=== PATIENT | female | born 1965 | race Caucasian/White ===

== ENCOUNTER 2019-06-29 13:19 | Emergency (ER) | payer OTHER, SELFPAY ==
[2019-06-29 13:20] VITALS: BP 155/70; PULSE 76; RESP 14; TEMP 36.5; O2SAT 100; BMI 28.4
--- NOTE | 2019-06-29 13:49 | DI.RAD.S_ITS ---
PROCEDURE: XR ACUTE ABDOMEN SERIES INDICATIONS: abd pain TECHNIQUE: One view chest and two views of the abdomen were acquired. COMPARISON: [facility], CR, XR SACRUM COCCYX MIN 2V, 06/29/2019, 14:14. FINDINGS: Surgical changes and devices: None. Chest: Lungs are clear. Heart size is normal. No pleural effusions. No pneumoperitoneum. Abdomen: Scattered small bowel and colonic gas. No dilated loops of bowel seen. No air-fluid levels. No suspicious calcifications. Visualized solid organ contours appear normal. Bones: No suspicious bony lesions. IMPRESSION: No acute cardiopulmonary abnormality. Nonobstructive bowel gas pattern. If clinically indicated consider CT abdomen and pelvis for further evaluation. Dictated by: Ras Dobson M.D. on 06/29/2019 at 14:56 Approved by: Ras Dobson M.D. on 06/29/2019 at 14:58
--- NOTE | 2019-06-29 13:50 | DI.RAD.S_ITS ---
PROCEDURE: XR SACRUM COCCYX MIN 2V INDICATIONS: pain TECHNIQUE: 3 views of the sacrum and coccyx acquired. COMPARISON: [facility], CR, XR ACUTE ABDOMEN SERIES, 06/29/2019, 14:14. FINDINGS: Bones: No fractures or dislocations. No suspicious bony lesions. Soft tissues: Visualized bowel gas pattern is normal. No suspicious soft tissue densities. IMPRESSION: No acute osseous abnormality. Dictated by: Ras Dobson M.D. on 06/29/2019 at 14:58 Approved by: Ras Dobson M.D. on 06/29/2019 at 14:58
--- NOTE | 2019-06-29 13:53 | ED_ITS ---
HPI - GI Bleed <NICKOLAS Bell - Last Filed: 06/29/19 19:52> General Chief complaint: GI Bleed Stated complaint: Bleeding From Rectum, Sharp Pain in Abd Time Seen by Provider: 06/29/19 13:26 Source: patient Mode of arrival: Ambulatory Limitations: no limitations History of Present Illness HPI Narrative: The patient is a 53-year-old female nonsmoker who presents with a chief complaint of bright red blood per rectum with abdominal pain. This has been ongoing for the past several days. She states that she feels dizzy at times now. She states that she passes blood clots. She states that the pain comes in cramping waves. She compares at to labor. She denies any fevers nausea vomiting. She states that she ?felt warm yesterday but now no longer does. She then states that her primary care provider, has ordered a ?stat colonoscopy but she has not heard anything about getting this scheduled yet. She states she has never had a colonoscopy before, even though she had an e pisode of bright red blood per rectum several years ago but did not have insurance at that time. 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 She she describes urinary urgency, states that she has had episodes of urinary incontinence. However she states that they happen while trying to get to the bathroom. She denies any current numbness or tingling, but states that she had slight numbness in one of her legs yesterday. She denies any fecal incontinence. She ambulated into the emergency department unassisted. Related Data Allergies Allergy/AdvReac Type Severity Reaction Status Date / Time erythromycin base Allergy Verified 06/29/19 13:50 Review of Systems <NICKOLAS Bell - Last Filed: 06/29/19 19:52> Review of Systems Narrative: GENERAL: Denies chills, fatigue, malaise, fever, sweats. HEENT: Denies sinus pain, ear pain, sore throat, difficulty swallowing, dizziness. RESPIRATORY: Denies dyspnea, cough, wheezing, hemoptysis, sputum. CARDIOVASCULAR: Denies chest pain, palpitations, orthopnea, edema, GASTROINTESTINAL: See HPI : Denies dysuria, frequency, incontinence, hematuria, urinary retention. MUSCULOSKELETAL: denies weakness, joint pain, or bony pain SKIN: Denies rash, skin lesions, or other NEUROLOGIC: See HPI PSYCHIATRIC: No concerning psychosocial issues. 12 point review of systems is negative except for those stated above Patient History <Trinity BarreraNICKOLAS - Last Filed: 06/29/19 19:52> Social History Smoking Status: Unknown if ever smoked Exam <Trinity BarreraNICKOLAS - Last Filed: 06/29/19 19:52> Narrative Exam Narrative: GENERAL: This is a well-nourished, well-developed patient, in no acute distress HEAD: Atraumatic. Normocephalic. No temporal or scalp tenderness. EYES: Pupils equal round and reactive. Extraocular motions intact. No scleral icterus. No injection or drainage. ENT: Nose without bleeding, purulent drainage or septal hematoma. Throat without erythema, tonsillar hypertrophy or exudate. Uvula midline. Airway patent. NECK: Trachea midline. No JVD or lymphadenopathy. Supple, nontender, no mening eal signs. CARDIOVASCULAR: Regular rate and rhythm RESPIRATORY: Clear to auscultation. Breath sounds equal bilaterally. No wheezes, rales, or rhonchi. No cough. No increased respiratory effort. No accessory muscle use. GASTROINTESTINAL: Abdomen soft, diffusely tender, nondistended. No hepato-spl enomegaly, or palpable masses. No guarding. Active bowel sounds rectal: Rama RN at bedside. No gross blood. Tone intact. No visible hemorrhoids. EXTREMITIES: No clubbing, cyanosis, or edema. No joint tenderness, effusion, or edema noted. Strength is equal upper and lower extremities bilaterally. BACK: Nontender without deformity or crepitance. No flank tenderness. No gross pain to palpation of CT or L-spine. General pain to palpation sacral area. NEURO: AOx3. SKIN: No rash or erythema on visible skin Initial Vital Signs Initial Vital Signs: Vital Signs Temperature 97.7 F 06/29/19 13:20 Pulse Rate 76 06/29/19 13:20 Respiratory Rate 14 06/29/19 13:20 Blood Pressure 155/70 H 06/29/19 13:20 Pulse Oximetry 100 06/29/19 13:20 <Isaac Reilly DO - Last Filed: 07/04/19 18:02> Initial Vital Signs Initial Vital Signs: Vital Signs Temperature 97.7 F 06/29/19 13:20 Pulse Rate 76 06/29/19 13:20 Respiratory Rate 14 06/29/19 13:20 Blood Pressure 155/70 H 06/29/19 13:20 Pulse Oximetry 100 06/29/19 13:20 Procedures <Trinity NICKOLAS Barrera - Last Filed: 06/29/19 19:52> Stool Hemoccult Procedural Steps Taken: stool placed in appropriate test area, developer placed on stool and control areas and controls appropriately positive and negative Hemoccult result: positive Scores <NICKOLAS Bell - Last Filed: 06/29/19 19:52> GCS [place] coma scale eye opening: Spontaneous [place] coma scale verbal response: Orientated [place] coma scale motor response: Obey commands [place] coma scale total score: 15 Course <NICKOLAS Bell - Last Filed: 06/29/19 19:52> Orders Ordered: Discontinued Medications Sodium Chloride (Normal Saline 0.9%) 1,000 mls @ 1,000 mls/hr IV BOLUS PRN PRN Reason: Fluid replacement Last Infusion: 06/29/19 18:29 Dose: 0 mls/hr Documented by: Admin: 06/29/19 15:49 Dose: 1,000 mls/hr Documented by: KYLE Vital Signs Vital signs: Vital Signs - 8 hr 06/29/19 13:20 06/29/19 15:00 06/29/19 18:30 Temperature 97.7 F Pulse Rate 76 76 83 Respiratory Rate 14 16 Blood Pressure 155/70 H 144/70 H Blood Pressure [Left Arm] 128/62 Pulse Oximetry 100 100 100 <Isaac Reilly DO - Last Filed: 07/04/19 18:02> Orders Ordered: Discontinued Medications Sodium Chloride (Normal Saline 0.9%) 1,000 mls @ 1,000 mls/hr IV BOLUS PRN PRN Reason: Fluid replacement Last Infusion: 06/29/19 18:29 Dose: 0 mls/hr Documented by: Admin: 06/29/19 15:49 Dose: 1,000 mls/hr Documented by: KYLE Vital Signs Vital signs: Vital Signs - 8 hr 06/29/19 13:20 06/29/19 15:00 06/29/19 18:30 Temperature 97.7 F Pulse Rate 76 76 83 Respiratory Rate 14 16 Blood Pressure 155/70 H 144/70 H Blood Pressure [Left Arm] 128/62 Pulse Oximetry 100 100 100 MDM - GI Bleed <Trinity Barrera, TRAFFIC CONTROL SUPERVISOR- - Last Filed: 06/29/19 19:52> Lab Data Result diagrams: 06/29/19 14:00 06/29/19 14:00 Labs: Lab Results 06/29/19 06/29/19 06/29/19 Range/Units 14:00 14:00 14:00 WBC 10.1 (4.5-11.0) X10^3/uL RBC 4.57 (4.0-5.2) X10^6/uL Hgb 13.3 (12.0-16.0) g/dL Hct 38.9 (36-46) % MCV 85.0 (80-100) fL MCH 29.0 (26-34) PG MCHC 34.1 (30-36) % RDW 12.9 (11.6-14.8) % Plt Count 292 (150-400) X10^3/uL Neut % (Auto) 68.3 (50-75) % Lymph % (Auto) 20.1 L (25-40) % [place] % (Auto) 9.0 (3-14) % Eos % (Auto) 1.7 L (2-4) % Baso % (Auto) 0.9 (0-2) % Neut # (Auto) 6900 (8384-3083) /uL Lymph # (Auto) 2000 (2695-7420) /uL [place] # (Auto) 900 (0-900) /uL Eos # (Auto) 200 (0-450) /uL Baso # (Auto) 100 (0-100) /uL PT 12.8 H (10.1-12.7) SECONDS INR 1.1 (0.9-1.3) APTT 36 (26.4-36.2) SECONDS Sodium 138 (137-145) mmol/L Potassium 4.0 (3.4-5.1) mmol/L Chloride 100 (98-107) mmol/L Carbon Dioxide 30 (22-32) mmol/L BUN 13 (7-17) mg/dL Creatinine 0.75 (0.52-1.04) mg/dL Estimated GFR > 60.0 (>60) mL/min BUN/Creatinine Ratio 17.3 (6-22) Glucose 98 (70-100) mg/dL Calcium 9.7 (8.4-10.2) mg/dL Total Bilirubin 0.6 (0.2-1.3) mg/dL AST 24 (14-36) IU/L ALT 18 (<35) IU/L Alkaline Phosphatase 66 (38-126) U/L Total Protein 8.4 H (6.3-8.2) g/dL Albumin 4.6 (3.5-5.0) g/dL Globulin 3.8 (1.7-4.1) g/dL Albumin/Globulin Ratio 1.2 (1.0-2.8) Amylase (30-110) U/L Lipase (23-300) U/L Blood Type Antibody Screen 06/29/19 06/29/19 Range/Units 14:00 14:00 WBC (4.5-11.0) X10^3/uL RBC (4.0-5.2) X10^6/uL Hgb (12.0-16.0) g/dL Hct (36-46) % MCV (80-100) fL MCH (26-34) PG MCHC (30-36) % RDW (11.6-14.8) % Plt Count (150-400) X10^3/uL Neut % (Auto) (50-75) % Lymph % (Auto) (25-40) % [place] % (Auto) (3-14) % Eos % (Auto) (2-4) % Baso % (Auto) (0-2) % Neut # (Auto) (5858-7733) /uL Lymph # (Auto) (9109-9275) /uL [place] # (Auto) (0-900) /uL Eos # (Auto) (0-450) /uL Baso # (Auto) (0-100) /uL PT (10.1-12.7) SECONDS INR (0.9-1.3) APTT (26.4-36.2) SECONDS Sodium (137-145) mmol/L Potassium (3.4-5.1) mmol/L Chloride (98-107) mmol/L Carbon Dioxide (22-32) mmol/L BUN (7-17) mg/dL Creatinine (0.52-1.04) mg/dL Estimated GFR (>60) mL/min BUN/Creatinine Ratio (6-22) Glucose (70-100) mg/dL Calcium (8.4-10.2) mg/dL Total Bilirubin (0.2-1.3) mg/dL AST (14-36) IU/L ALT (<35) IU/L Alkaline Phosphatase (38-126) U/L Total Protein (6.3-8.2) g/dL Albumin (3.5-5.0) g/dL Globulin (1.7-4.1) g/dL Albumin/Globulin Ratio (1.0-2.8) Amylase 61 (30-110) U/L Lipase 37 (23-300) U/L Blood Type O Negative Antibody Screen Negative Urine Dip Bedside Urine Glucose Negative Bedside Urine Bilirubin - Negative Bedside Urine Ketone - Negative Urine Specific [place] 1.015 Bedside Urine Occult Blood - Negative Bedside Urine pH 6.0 Bedside Urine Protein - Negative Bedside Urine Urobilinogen - Negative Bedside Urine Nitrite - Negative Bedside Urine Leukocytes - Negative Esterase Imaging Data CT scan - abdomen/pelvis: Radiologist's Impression: [address] [place] [address] CT Scan Report Signed Patient: Annabelle Bryant EMR#: [id number] : 1965Acct:[id number] Age/Sex: 53 / FDate of Service: 06/29/19 Loc: ED Accession Number: [id number] Procedure: CT abdomen pelvis w con Ordering Provider: Trinity Barrera [facility]- PROCEDURE: CT ABDOMEN PELVIS W CON INDICATIONS: abd pain, bleeding TECHNIQUE: After the administration of intravenous contrast, 5 mm thick sections acquired from the diaphragm to the symphysis. 5 mm coronal and sagittal reformats were acquired. For radiation dose reduction, the following was used: automated exposure control, adjustment of mA and/or kV according to patient size. COMPARISON: None. FINDINGS: Image quality: Excellent. ABDOMEN: Lung bases: Lung bases are clear. Heart size is normal. Solid organs: Liver is normal in size and enhancement. Gallbladder appears normal. Biliary system is non dilated. Pancreas enhances normally. Spleen is normal in size and enhancement. No adrenal nodules. Kidneys demonstrate normal size and enhancement, without hydronephrosis. Peritoneum and bowel: Bowel loops demonstrate normal wall thickness and caliber. No free fluid or air. Mild colonic obstipation. Nodes and vessels: No retroperitoneal or mesenteric adenopathy by size criteria. Aorta and inferior vena cava are normal in size. Miscellaneous: No ventral hernias. PELVIS: Genitourinary: Bladder wall thickness is normal. Note is made of a 3.8 cm diameter uterine fibroid. Miscellaneous: No inguinal hernias or adenopathy. Bones: No suspicious bony lesions. No vertebral body compression fractures. IMPRESSION: Source of reported abdominal pain and bleeding is not seen. 3.8 cm uterine fibroid noted near the fundus. No intestinal obstruction or perforation is found. Mild colonic obstipation. Dictated by: Flaco Liu M.D. on 06/29/2019 at 15:52 Approved by: Flaco Liu M.D. on 06/29/2019 at 15:54 Sacrum and coccyx x-ray: Radiologist's Impression: [address] [place] [id number] XRay Report Signed Patient: Annabelle Bryant EMR#: [id number] : 1965Acct:[id number] Age/Sex: 53 / FDate of Service: 06/29/19 Loc: ED Accession Number: [id number] Procedure: XR sacrum coccyx min 2V Ordering Provider: Trinity Barrera PROCEDURE: XR SACRUM COCCYX MIN 2V INDICATIONS: pain TECHNIQUE: 3 views of the sacrum and coccyx acquired. COMPARISON: [facility], CR, XR ACUTE ABDOMEN SERIES, 06/29/2019, 14:14. FINDINGS: Bones: No fractures or dislocations. No suspicious bony lesions. Soft tissues: Visualized bowel gas pattern is normal. No suspicious soft tissue densities. IMPRESSION: No acute osseous abnormality. Dictated by: Ras Dobson M.D. on 06/29/2019 at 14:58 Approved by: Ras Dobson M.D. on 06/29/2019 at 14:58 Abdominal x-ray: Radiologist's Impression: [address] [place] [id number] XRay Report Signed Patient: Annabelle Bryant EMR#: [id number] : 1965Acct:[id number] Age/Sex: 53 / FDate of Service: 06/29/19 Loc: ED Accession Number: [id number] Procedure: XR acute abdomen series Ordering Provider: Trinity Barrera PROCEDURE: XR ACUTE ABDOMEN SERIES INDICATIONS: abd pain TECHNIQUE: One view chest and two views of the abdomen were acquired. COMPARISON: [facility], CR, XR SACRUM COCCYX MIN 2V, 06/29/2019, 14:14. FINDINGS: Surgical changes and devices: None. Chest: Lungs are clear. Heart size is normal. No pleural effusions. No pneumoperitoneum. Abdomen: Scattered small bowel and colonic gas. No dilated loops of bowel seen. No air-fluid levels. No suspicious calcifications. Visualized solid organ contours appear normal. Bones: No suspicious bony lesions. IMPRESSION: No acute cardiopulmonary abnormality. Nonobstructive bowel gas pattern. If clinically indicated consider CT abdomen and pelvis for further evaluation. Dictated by: Ras Dobson M.D. on 06/29/2019 at 14:56 Approved by: Ras Dobson M.D. on 06/29/2019 at 14:58 MDM Narrative Medical decision making narrative: The patient is a 53-year-old female who initially presents with a chief complaint of GI bleeding ongoing for the past several days. She has had an episode of this several years ago never had investigated by colonoscopy. That the patient states that she also thinks she has cauda equina mode like to get her outpatient MRI done today. However she has good rectal tone, is not incontinent, is continent to the bathroom several times throughout her stay in the emergency department. She describes situations of not making it to the bathroom in time to urinate. She also has no noted neurological deficits today. I discussed at length coming back to the emergency department for any acute incontinence of bladder, stool, saddle anesthesia. She has good rectal tone and sensation today. Regarding her GI bleeding, she has a negative CT scan, negative abdominal x-ray. She is hemodynamically stable as well as normotensive. Her hemoglobin and hematocrit are normal. I discussed at length the importance of follow-up for colonoscopy, she states that her PCP has already ordered one ?stat,which she has not obtained. I spoke with Dr. Bashir regarding the patient, who states the patient is welcome to follow up with them. I discussed at length with the patient coming back to the emergency department for any acute concerns such as serious bleeding, lightheadedness, concern of heart attack or stroke, incontinence bowel, incontinence of bladder saddle anesthesia. She is hemodynamically stable and ambulatory throughout her stay in the emergency department. <Isaac Reilly DO - Last Filed: 07/04/19 18:02> Lab Data Labs: Lab Results 06/29/19 06/29/19 06/29/19 Range/Units 14:00 14:00 14:00 WBC 10.1 (4.5-11.0) X10^3/uL RBC 4.57 (4.0-5.2) X10^6/uL Hgb 13.3 (12.0-16.0) g/dL Hct 38.9 (36-46) % MCV 85.0 (80-100) fL MCH 29.0 (26-34) PG MCHC 34.1 (30-36) % RDW 12.9 (11.6-14.8) % Plt Count 292 (150-400) X10^3/uL Neut % (Auto) 68.3 (50-75) % Lymph % (Auto) 20.1 L (25-40) % [place] % (Auto) 9.0 (3-14) % Eos % (Auto) 1.7 L (2-4) % Baso % (Auto) 0.9 (0-2) % Neut # (Auto) 6900 (0015-7802) /uL Lymph # (Auto) 2000 (0957-8822) /uL [place] # (Auto) 900 (0-900) /uL Eos # (Auto) 200 (0-450) /uL Baso # (Auto) 100 (0-100) /uL PT 12.8 H (10.1-12.7) SECONDS INR 1.1 (0.9-1.3) APTT 36 (26.4-36.2) SECONDS Sodium 138 (137-145) mmol/L Potassium 4.0 (3.4-5.1) mmol/L Chloride 100 (98-107) mmol/L Carbon Dioxide 30 (22-32) mmol/L BUN 13 (7-17) mg/dL Creatinine 0.75 (0.52-1.04) mg/dL Estimated GFR > 60.0 (>60) mL/min BUN/Creatinine Ratio 17.3 (6-22) Glucose 98 (70-100) mg/dL Calcium 9.7 (8.4-10.2) mg/dL Total Bilirubin 0.6 (0.2-1.3) mg/dL AST 24 (14-36) IU/L ALT 18 (<35) IU/L Alkaline Phosphatase 66 (38-126) U/L Total Protein 8.4 H (6.3-8.2) g/dL Albumin 4.6 (3.5-5.0) g/dL Globulin 3.8 (1.7-4.1) g/dL Albumin/Globulin Ratio 1.2 (1.0-2.8) Amylase (30-110) U/L Lipase (23-300) U/L Blood Type Antibody Screen 06/29/19 06/29/19 Range/Units 14:00 14:00 WBC (4.5-11.0) X10^3/uL RBC (4.0-5.2) X10^6/uL Hgb (12.0-16.0) g/dL Hct (36-46) % MCV (80-100) fL MCH (26-34) PG MCHC (30-36) % RDW (11.6-14.8) % Plt Count (150-400) X10^3/uL Neut % (Auto) (50-75) % Lymph % (Auto) (25-40) % [place] % (Auto) (3-14) % Eos % (Auto) (2-4) % Baso % (Auto) (0-2) % Neut # (Auto) (2876-0632) /uL Lymph # (Auto) (4717-2567) /uL [place] # (Auto) (0-900) /uL Eos # (Auto) (0-450) /uL Baso # (Auto) (0-100) /uL PT (10.1-12.7) SECONDS INR (0.9-1.3) APTT (26.4-36.2) SECONDS Sodium (137-145) mmol/L Potassium (3.4-5.1) mmol/L Chloride (98-107) mmol/L Carbon Dioxide (22-32) mmol/L BUN (7-17) mg/dL Creatinine (0.52-1.04) mg/dL Estimated GFR (>60) mL/min BUN/Creatinine Ratio (6-22) Glucose (70-100) mg/dL Calcium (8.4-10.2) mg/dL Total Bilirubin (0.2-1.3) mg/dL AST (14-36) IU/L ALT (<35) IU/L Alkaline Phosphatase (38-126) U/L Total Protein (6.3-8.2) g/dL Albumin (3.5-5.0) g/dL Globulin (1.7-4.1) g/dL Albumin/Globulin Ratio (1.0-2.8) Amylase 61 (30-110) U/L Lipase 37 (23-300) U/L Blood Type O Negative Antibody Screen Negative Urine Dip Bedside Urine Glucose Negative Bedside Urine Bilirubin - Negative Bedside Urine Ketone - Negative Urine Specific [place] 1.015 Bedside Urine Occult Blood - Negative Bedside Urine pH 6.0 Bedside Urine Protein - Negative Bedside Urine Urobilinogen - Negative Bedside Urine Nitrite - Negative Bedside Urine Leukocytes - Negative Esterase Discharge Plan Departure Patient Disposition: Home Clinical Impression: RB (rectal bleeding) Abdominal pain Qualifiers: Abdominal location: generalized Qualified Code(s): R10.84 - Generalized abdominal pain Discharge Date/Time: 06/29/19 18:30 Instructions: Cauda Equina Syndrome, DI for Abdominal Pain-Adult, Gastrointestinal Bleeding Activity Restrictions/Additional Instructions: Thank you for trusting us with your care today. As discussed, please follow-up for an outpatient colonoscopy. I suggest following up with [facility] as well as your primary care provider. I spoke with Dr. Bashir who stated that you are welcome to follow up with [facility]. Your lab work is reassuring, your blood counts are good and your vital signs hav e been stable throughout your stay in the emergency department. Please monitor for severe bleeding, passing out etcetera come back to the emergency department for any acute concerns. Please also monitor for abdominal pain with fever and inability keep down fluids. I suggest following up with her outpatient MRI as ordered by your primary care provider. Please monitor for urinary incontinence or bowel movements with no warning as well as numbness in your groin and rectum. These are signs that you might have an acute spinal injury and have to be evaluated as soon as possible. I have included a handout on cauda equina syndrome so that you know what to watch out for. Please come back to the emergency department for any acute concerns. Referrals: [facility] [Provider Group] Anisha Portillo MD [Non-Staff] - Ted Bashir MD [Physician] - <Isaac Reilly DO - Last Filed: 07/04/19 18:02> Cosign ED Attending Cosignature Attestation: Dr Reilly Co-Sign Statement: I was available for consultation during this patient's emergency department visit. This chart is signed by myself for administrative purposes only. I did not have direct contact with this patient during this visit. They were seen independently by the APC.
[2019-06-29 14:11] LABS: Add Manual Diff / Slide Review NO; Basophils Absolute Auto 100 /uL (0-100); Basophils Percent Auto 0.9 % (0-2); Eosinophils Absolute Auto 200 /uL (0-450); Eosinophils Percent Auto 1.7 % (2-4); Hematocrit 38.9 % (36-46); Hemoglobin 13.3 g/dL (12.0-16.0); Lymphocytes Absolute Auto 2000 /uL (1100-4500); Lymphocytes Percent Auto 20.1 % (25-40); Mean Corpuscular HGB Conc 34.1 % (30-36); Monocytes Absolute Auto 900 /uL (0-900); Neutrophils Absolute Auto 6900 /uL (1500-7000); Neutrophils Percent Auto 68.3 % (50-75); Platelet Count 292 X10^3/uL (150-400); Red Blood Cell Count 4.57 X10^6/uL (4.0-5.2); Red Cell Distribution Width 12.9 % (11.6-14.8); White Blood Cell Count 10.1 X10^3/uL (4.5-11.0)
[2019-06-29 14:22] LABS: INR 1.1 (0.9-1.3); Prothrombin Time 12.8 SECONDS (10.1-12.7)
[2019-06-29 14:24] LABS: PTT Partial Thromboplastin Tim 36 SECONDS (26.4-36.2)
[2019-06-29 14:28] LABS: Alanine Aminotransferase 18 IU/L (<35); Albumin 4.6 g/dL (3.5-5.0); Albumin Globulin Ratio 1.2 (1.0-2.8); Alkaline Phosphatase 66 U/L (38-126); Amylase 61 U/L (30-110); Aspartate Aminotransferase 24 IU/L (14-36); BUN Creatinine Ratio 17.3 (6-22); Bilirubin Total 0.6 mg/dL (0.2-1.3); Blood Urea Nitrogen 13 mg/dL (7-17); Calcium 9.7 mg/dL (8.4-10.2); Carbon Dioxide 30 mmol/L (22-32); Chloride 100 mmol/L (98-107); Estimated Glomerular Filt Rate > 60.0 mL/min (>60); Globulin 3.8 g/dL (1.7-4.1); Glucose 98 mg/dL (70-100); HEMOLYSIS < 15 (0-50); Lipase 37 U/L (23-300); Sodium 138 mmol/L (137-145); Total Protein 8.4 g/dL (6.3-8.2)
[2019-06-29 15:00] VITALS: BP 128/62; PULSE 76; RESP 16; O2SAT 100
--- NOTE | 2019-06-29 15:06 | DI.CT.S_ITS ---
PROCEDURE: CT ABDOMEN PELVIS W CON INDICATIONS: abd pain, bleeding TECHNIQUE: After the administration of intravenous contrast, 5 mm thick sections acquired from the diaphragm to the symphysis. 5 mm coronal and sagittal reformats were acquired. For radiation dose reduction, the following was used: automated exposure control, adjustment of mA and/or kV according to patient size. COMPARISON: None. FINDINGS: Image quality: Excellent. ABDOMEN: Lung bases: Lung bases are clear. Heart size is normal. Solid organs: Liver is normal in size and enhancement. Gallbladder appears normal. Biliary system is non dilated. Pancreas enhances normally. Spleen is normal in size and enhancement. No adrenal nodules. Kidneys demonstrate normal size and enhancement, without hydronephrosis. Peritoneum and bowel: Bowel loops demonstrate normal wall thickness and caliber. No free fluid or air. Mild colonic obstipation. Nodes and vessels: No retroperitoneal or mesenteric adenopathy by size criteria. Aorta and inferior vena cava are normal in size. Miscellaneous: No ventral hernias. PELVIS: Genitourinary: Bladder wall thickness is normal. Note is made of a 3.8 cm diameter uterine fibroid. Miscellaneous: No inguinal hernias or adenopathy. Bones: No suspicious bony lesions. No vertebral body compression fractures. IMPRESSION: Source of reported abdominal pain and bleeding is not seen. 3.8 cm uterine fibroid noted near the fundus. No intestinal obstruction or perforation is found. Mild colonic obstipation. Dictated by: Flaco Liu M.D. on 06/29/2019 at 15:52 Approved by: Flaco Liu M.D. on 06/29/2019 at 15:54
[2019-06-29] MEDS: SODIUM CHLORIDE 0.9% 1,000 ML 1000 ML IV (15:49)
[2019-06-29 18:30] VITALS: BP 144/70; PULSE 83; O2SAT 100
== END 2019-06-29 18:30 | disposition home or self-care (01) ==
PROVIDERS: Emergency Provider Nurse Practitioner Family; Referring Provider Nurse Practitioner Family
DX: K62.5 Hemorrhage of anus and rectum (principal); R10.84 Generalized abdominal pain
CPT/HCPCS: 36415; 72220; 74022; 74177; 80053; 81003; 82150; 83690; 85025; 85610; 85730; 86850; 86900; 86901; 96360; 96361; 99284

== ENCOUNTER → 2019-07-11 16:01 | Outpatient (CLI) | payer OTHER, SELFPAY ==
[2019-07-11 18:09] LABS: COVID19 -Nasal RAPID Negative (Negative)
== END ==
PROVIDERS: Visit Provider Registered Nurse
DX: Z01.812 Encounter for preprocedural laboratory examination (principal)
CPT/HCPCS: 87635

== ENCOUNTER 2019-07-12 07:44 | Day surgery (SDC) | payer OTHER, SELFPAY ==
[2019-07-12] VITALS (7 sets, daily range): BP systolic 97–120; BP diastolic 53–74; PULSE 67–87; RESP 6–15; TEMP 36.1–37.1; O2SAT 97–100; BMI 28.3
[2019-07-12] MEDS: LACTATED RINGERS 1,000 ML 200 ML IV (08:29)
--- NOTE | 2019-07-12 08:32 | P.HP_ITS ---
History of Present Illness History of Present Illness Date Patient Seen: 07/12/19 Time Patient Seen: 08:32 Chief complaint: [id number] Narrative: The patient is a woman who has been having gelatinous bloody bowel movements. She had to them in mid June and they have sent stop. She has never had this before. Her mother had colon resection for a premalignant lesion. She has had other relatives with yet early colon cancer. These were not immediate family members however. No abdominal pain with this. Patient History Family & Social History Social History: household members spouse Tobacco & Substance use: Smoking Status Former smoker alcohol intake frequency holiday/special occasion Substance Use Type does not use Meds Home Medications and Allergies Home Medications Medication Instructions Recorded Confirmed Type No Known Home Medications 07/12/19 07/12/19 History Allergies Allergy/AdvReac Type Severity Reaction Status Date / Time erythromycin base Allergy Verified 07/12/19 08:02 Review of Systems Review of Systems Narrative: Patient denies any heart problems or chest pain except if she has an asthma attack she may get some tightness. It is relieved immediately with albuterol use. Patient has intermittent asthma and uses an inhaler periodically. Last use was several days ago. No vomiting of blood. No abdomin al pain. Patient denies any seizures or blackouts. Exam Vital Signs (past 8 hours): - 07/12/19 08:07 Temperature 98.7 F Pulse Rate 87 Respiratory Rate 14 Blood Pressure 119/59 L Pulse Oximetry 99 Oxygen Delivery Method Room Air Narrative Exam Narrative: Cooperative woman in no apparent distress. Her eyes are nonicteric. Lungs are clear to auscultation without rales or rhonchi are Re wheezing. She does not sound tight. Even percussion. Heart regular rate and rhythm without murmur gallop. No heave lift or thrill. Abdomen is mildly protuberant soft nontender without mass. Patient is alert oriented x3. Speech rate and content are appropriate. Affect appropriate. Assessment & Plan Assessment & Plan narrative: Patient with recent fairly significant rectal bleeding. She has never had it before. I suspect diverticular bleeding but it could be something else is more ominous. It is also possible she has hemorrhoids. I have discussed colonoscopy with her and possible banding. Risks of bleeding, infection, failure to find removal lesions, the potential pat tattoo, and the potential for perforation which would require major operation were all discussed. She wishes to proceed. All questions answered
[2019-07-12] MEDS: MIDAZOLAM 5 MG/5 ML VIAL IV (08:38)
[2019-07-12] MEDS: fentaNYL 250 MCG/5 ML INJ IV (08:39)
--- NOTE | 2019-07-12 08:43 | PM.PREOP ---
Pre-operative Note COVID-19 COVID-19 status: Negative Result date/Date tested (Pos, Neg/Pending): 07/11/19 Interval Note History & Physical reviewed/Exam performed by Physician: Yes Changes to H&P: No ASA Class (for procedural sedation): I
--- NOTE | 2019-07-12 09:17 | PM.OP.ENDO ---
Operative Date/Time/Diagnoses Date of procedure: 07/12/19 Time of procedure: 09:17 Pre-op diagnosis: Rectal bleeding Post-op diagnosis: same (Diverticulosis) Procedure & Clinicians Study performed: Colonoscopy Same procedure as scheduled: Yes Indications: Rectal bleeding. Procedure Notes SCOAP/Timeout: Performed Procedure in detail: The patient was placed in the left lateral decubitus position and underwent IV sedation directed by the surgeon consisting of fentanyl and Versed. Digital exam was unremarkable except her coccyx does turn in slightly.. The scope was inserted and advanced through the rectum into the sigmoid, descending, transverse, and ascending colon. Patient was noted to have sigmoid diverticulosis. The cecum was reached identified by the ileocecal valve and the appendiceal opening. The ileocecal valve was successfully cannulated. The terminal ileum was normal in appearance. The scope was gradually brought out. No Polyps were found. The scope ultimately was retroflexed in the rectum. The appearance was remarkable for scarring at the anus but no active hemorrhoidal disease. The scope was removed and the patient tolerated the procedure well. The prep was very good. Scope withdrawal time: 9 minutes Sedation minutes: 29 Findings: diverticulosis Specimen(s): none sent Complications: none Post-procedure Recommendations: Colonscopy in 5 years (Due to family history) Follow up: as needed Disposition: PACU
== END 2019-07-12 11:40 | disposition home or self-care (01) ==
PROVIDERS: Referring Provider Specialist; Visit Provider Specialist
PROC: 0DJD8ZZ Inspection of Lower Intestinal Tract, Via Natural or Artificial Opening Endoscopic (ICD-10-PCS; CPT 45378; principal; 2019-07-12 08:45)
DX: K57.30 Diverticulosis of large intestine without perforation or abscess without bleeding (principal)
CPT/HCPCS: 45378; 99152; 99153; J2250; J3010

== ENCOUNTER → 2019-07-15 07:37 | Outpatient (CLI) | payer OTHER, SELFPAY ==
--- NOTE | 2019-07-15 07:40 | DI.MRI.S_ITS ---
PROCEDURE: MR LUMBAR SPINE WO CON INDICATIONS: Paresthesia of skin TECHNIQUE: Noncontrast sagittal T1 spin echo and T2 fast echo, sagittal STIR, axial T1 and T2 fast spin echo through the lumbar spine. In cases with scoliosis, additional coronal T2 fast spin echo may be performed. COMPARISON: [facility], CR, XR ACUTE ABDOMEN SERIES, 06/29/2019, 14:14. [facility], CT, CT ABDOMEN PELVIS W CON, 06/29/2019, 15:14. FINDINGS: Image quality: Excellent. Alignment and Curvature: There is normal bony alignment. Bone Marrow: Marrow is of normal overall signal. No acute vertebral body compression fractures. Spinal Cord: Conus medullaris terminates at the T12-L1 level. Visualized cord demonstrates normal signal and size. Paraspinous Soft Tissues: No paravertebral masses. T12-L1: Normal appearance. L1-L2: Normal appearance. L2-L3: Normal appearance. L3-L4: The disc height and disc signal are relatively well-preserved. Mild to moderate disc bulge is seen. Mild facet joint hypertrophy is seen. Mild bilateral neural foraminal narrowing is seen. Mild central canal narrowing is seen. L4-L5: Mild loss of disc height is seen. Loss of disc signal is seen. There is a focal annular fissure seen posteriorly. Moderate disc bulge is seen, which is eccentric to the left. There is at least moderate facet hypertrophy seen. There is moderate to severe bilateral neural foraminal narrowing seen. There is a degree of compression seen upon the exiting nerve roots. Moderate central canal narrowing is seen. L5-S1: The disc height and disk signal are well-preserved. Mild generalized disc bulge is seen. [id number] facet hypertrophy is seen. No significant neural foraminal or central canal narrowing can be seen. IMPRESSION: Focal L4-L5 degenerative change is seen. At this level, an annular fissure is seen as well as moderate to severe bilateral neural foraminal narrowing, with associated compression upon exiting bilateral L4 nerve roots. Dictated by: Jacob Brown M.D. on 07/17/2019 at 10:08 Approved by: Jacob Brown M.D. on 07/17/2019 at 10:12
== END ==
PROVIDERS: PCP Internal Medicine; Referring Provider Internal Medicine; Visit Provider Internal Medicine
DX: M47.816 Spondylosis without myelopathy or radiculopathy, lumbar region (principal); M48.061 Spinal stenosis, lumbar region without neurogenic claudication; R20.2 Paresthesia of skin
CPT/HCPCS: 72148

== ENCOUNTER → 2019-09-08 09:51 | Outpatient (CLI) | payer OTHER, SELFPAY ==
--- NOTE | 2019-09-08 | DI.RAD.S_ITS ---
PROCEDURE: XR HIP W PEL IF DONE LT 2V INDICATIONS: Pain in left hip, no trauma TECHNIQUE: AP pelvis with lateral view(s) of the left hip(s). COMPARISON: None. FINDINGS: Bones: No fractures or dislocations. Pelvic ring appears intact. No suspicious bony lesions. Mild symmetric hip joint degeneration bilaterally. Soft tissues: The visualized bowel gas pattern is normal. No suspicious soft tissue calcifications. IMPRESSION: Mild symmetric hip joint degeneration bilaterally. Dictated by: Rajan Parr M.D. on 09/08/2019 at 10:25 Approved by: Rajan Parr M.D. on 09/08/2019 at 10:37
== END ==
PROVIDERS: PCP Internal Medicine; Referring Provider Internal Medicine; Visit Provider Internal Medicine
DX: M25.552 Pain in left hip (principal); M16.0 Bilateral primary osteoarthritis of hip
CPT/HCPCS: 73502